=== PATIENT | female | born 2000 | race Caucasian/White ===

== ENCOUNTER → 2020-04-11 | Outpatient (CLI) | payer OTHER ==
--- NOTE | 2020-04-11 18:26 | RADIOLOGY REPORT (SQ) ---
EXAM DESCRIPTION: U/S NON-OB PELVIS TV W/O DOP IMAGES COMPLETED DATE/TIME: 04/11/2020 4:36 pm REASON FOR STUDY: (R10.31)RIGHT LOWER QUADRANT PAIN R10.31 RIGHT LOWER QUADRANT PAIN COMPARISON: None. TECHNIQUE: Dynamic and static grayscale images acquired of the pelvis via transvaginal approach and recorded on PACS. Additional selected color Doppler and spectral images recorded. LIMITATIONS: None. FINDINGS: UTERUS: Contour normal. No mass. ENDOMETRIAL STRIPE: No focal or generalized thickening. No masses. CERVIX: The cervix measures 2.0 cm in length. A few small subcentimeter Nabothian cysts. RIGHT OVARY AND DOPPLER: Normal size. Multiple ovarian follicles. Normal arterial vascular flow wit hout evidence for torsion. LEFT OVARY AND DOPPLER: Normal size. Multiple ovarian follicles. Normal arterial vascular flow with out evidence for torsion. FREE FLUID: Small volume of free fluid in the cul-de-sac may be on a physiologic basis. OTHER: No other significant finding. MEASUREMENTS: UTERUS: 6.1 x 4.2 x 2.4 cm ENDOMETRIAL STRIPE: 1.6 mm RIGHT OVARY: 2.9 x 3.1 x 2.2 cm LEFT OVARY: 3.2 x 2.4 x 1.7 cm IMPRESSION: 1. Bilateral multiple ovarian follicles. 2. A few small subcentimeter Nabothian cysts in the cervix. 3. Examination is otherwise unremarkable sonographically. TECHNICAL DOCUMENTATION: JOB ID: [id number] [employer]- All Rights Reserved Rev-03/12 Reading location - IP/workstation name: [email or web address]
== END ==
LOC: RAD 16:01
PROVIDERS: ATTEND Physician Assistant
DX: R10.31 Right lower quadrant pain (principal)
CPT/HCPCS: 76830